=== PATIENT | female | born 1990 | race Caucasian/White ===

== ENCOUNTER → 2021-04-13 14:12 | Outpatient (CLI) | payer OTHER, SELFPAY ==
--- NOTE | ~2021-04-13 | US_ITS ---
EXAMINATION: US OB /maternal detail DATE: 04/13/2021 14:59 INDICATION: anatomic survey. TECHNIQUE: Real-time ultrasound of the pelvis was performed. COMPARISON: None. FINDINGS: There is a single living fetus in vertex presentation. The placenta is anterior, 6.8 cm from the cer vix. heart rate is 162 beats per minute (bpm). The amniotic fluid volume is subjectively normal . The following biometric data were obtained: Biparietal diameter (BPD): 4.7 cm; head circumference (HC): 17.5 cm; abdominal circumference (AC): 14 .7 cm; femur length (FL): 3.1 cm. These measurements are concordant. Estimated weight is 312 g +/- 47 g, which correlates with the 49th percentile when 09/02/21 is u sed as estimated date of delivery. As single measurements, these parameters are each equal to the following estimated gestational ages w ith ranges of +/- 2 standard deviations: BPD: 20 weeks 2 days (18 weeks 4 days - 22 weeks 0 days). HC: 20 weeks 0 days (18 weeks 4 days - 21 weeks 4 days). AC: 20 weeks 0 days (17 weeks 6 days - 22 weeks 0 days). FL: 19 weeks 3 days (17 weeks 4 days - 21 weeks 2 days). estimated gestational age based solely on measurements from this exam is 20 weeks 0 days +/- 1 weeks 3 days. The cerebral ventricles, cerebellum, cisterna magna, nuchal fold, and visualized portions of the spin e are normal. The heart is normal. The left ventricular and right ventricular outflow tracts are not well visualized. The diaphragm, stomach, kidneys, and bladder are normal. There are two umbilical art eries to yield a 3-vessel cord. The cord insertion is normal. IMPRESSION: 1. Single living fetus in vertex presentation. 2. Estimated weight is 312 g +/- 47 g, which correlates with the 49th percentile when 09/02/21 is used as estimated date of delivery. 3. Normal anatomic survey. Reviewed, dictated and finalized at location A. RAL PRODUCTION MANAGER IMPRESSION: 1. Single living fetus in vertex presentation. 2. Estimated weight is 312 g +/- 47 g, which correlates with the 49th pe rcentile when 09/02/21 is used as estimated date of delivery. 3. Normal anatomic survey.
== END ==
PROVIDERS: Visit Provider Obstetrics & Gynecology
DX: Z36.9 Encounter for antenatal screening, unspecified (principal); Z3A.20 20 weeks gestation of pregnancy
CPT/HCPCS: 76805

== ENCOUNTER 2025-01-03 17:52 | Emergency (ER) | payer OTHER, SELFPAY ==
--- NOTE | ~2025-01-03 | CT_ITS ---
Exam: CT abdomen and pelvis with contrast Clinical History: [Abdominal pain. Vomiting ] Comparison: [ None available] Technique: Multiple axial CT images of the abdomen and pelvis were obtained with IV contrast. Sagittal and coronal reformatted images were obtained. FINDINGS: Lung bases: [ ] Liver: [There is a too small to characterize low-attenuation in the liver.No mass.] [ No intrahepatic biliary duct dilatation.] Gallbladder: [ No wall thickening or stones.] Common bile duct: [ Normal caliber.] [ No stones.] Spleen: [ Within normal limits.] Pancreas: [ No mass. No pancreatic fluid collection.] Adrenals: [ No masses.] Kidneys: [ No masses. No hydronephrosis.][ ] Lymph nodes: [ No adenopathy in the abdomen or pelvis.] Stomach, small bowel and colon: [ No bowel wall thickening or obstruction.] Thickening of the winter of the descending and proximal transverse colon. Differential includes incomplete bowel wall distention or colitis. Peritoneum cavity: [ No mesenteric fat stranding or fluid.] Bladder: [ Unremarkable.] Uterus is unremarkable. There is an IUD in the uterus. Osseous structures: [ No acute fracture or destructive lesion.] [ Multilevel degenerative change in the visualized spine.] Abdominal aorta: [ No aneurysm.] Additional findings: [ None of significance.] IMPRESSION: 1. Thickening of the winter of the descending and proximal transverse colon. Differential includes incomplete bowel wall distention or colitis. Reviewed, dictated and finalized at location Q. IMPRESSION: 1. Thickening of the winter of the descending and proximal transverse colon. Dif ferential includes incomplete bowel wall distention or colitis.
--- OUTSIDE RECORDS SUMMARY | 2025-01-03 17:54 | XMS_ITS | Encounter Summary ---
Author Organization [facility] Address [address] [place] [address] Care Team Providers Care Polls Or Surveys Interviewer Name Role Phone Ludin Strange MD Primary Care Provider [phone] Encounter Details Date Type Department Care Team (Late st Contact Info) Description 07/30/2021 In[employer] Message [facility] [address] [place] [address] Kathrine Butler NP [address] [facility] [address] [place] [address] Right ear pressure/pain Social History Tobacco Use Types Packs/Day Years Used Date Smoking Tobacco: Former Cigarettes Q uit: 2018 Smokeless Tobacco: Never Alcohol Use Standard Drinks/Week Comments No 0 (1 standard drink = 0.6 oz pur e alcohol) AUDIT-C Answer Date Recorded Frequency of Alcohol Consumption Never 03/13/2019 Average Number of Drinks Not on file 019 Frequency of Binge Drinking Not on file 02/23 PHQ-2 Answer Date Recorded PHQ-2 Score - If the patient scores above 3, please move on to questions 3-9 0 07/30/2021 Comments Yes Sex and Gender Information Value Date Recorded Sex Assigned at Not on file Legal Sex Female 9:32 AM CDT Gender Identity Not on file Sexual Orientation Not on file Occupation Industry Job Start Date Job End Date [employer] Not on file Not on file Not o n file COVID-19 Exposure Response Date Recorded In the last 10 days, have yo u been in contact with someone who was confirmed or suspected to have Coronavirus/COVID-19? No / Unsure 08/02/2021 4:03 PM CDT documented as of this encounter Functional Status * RETIRED Are you deaf or do you have serious difficulty hearing Answer Date of Assessment Author Status No 04/14/2019 7:07 AM NETWORK CONSULTANT Activ e * RETIRED Are you blind or do you have serious difficulty seeing, even when wearing glasses? Answer Date of Assessment Author Status No 04/14/2019 7:07 AM NETWORK CONSULTANT Activ e * Do you have serious difficulty walking or climbing stairs? Answer Date of Assessment Author Status No 04/14/2019 7:07 AM Cynthia Ovalles RN Active * Do you have difficulty dressing or bathing? Answer Date of Assessment Author Status No 04/14/2019 7:07 AM Cynthia Ovalles RN Active * Because of a physical, mental, or emotional condition, do you have difficulty doing errands alone such as visiting a doctor's office or shopping? Answer Date of Assessment Author Status No 04/14/2019 7:07 AM Cynthia Ovalles RN Active * Calculated C-SSRS Risk Score (Lifetime/Recent) Answer Date of Assessment Author Status No Risk Indicated 08/02/2021 4:13 PM CDT Holli Engel RN Active * [place] Suicide Severity Rating Scale (Screener/Recent Self-Report) Question Answer Date of Assessment Author Status 1. Wish to be (Past 1 Month) No 08/02/2021 4:13 PM CDT Arvind Engel RN Acti ve 2. Non-Specific Active Suicidal Thoughts (Past 1 Month) No 08/02/2021 4:13 PM CDT Arvind Engel RN Acti ve 6. Suicidal Behavior (Lifetime) No 08/02/2021 4:13 PM CDT Arvind Engel RN Acti ve documented as of this encounter Mental Status * Because of a physical, mental, or emotional condition, do you have serious difficulty concentrating, remembering, or making decisions? Answer Entry Date Author Status No 04/14/2019 7:07 AM Cynthia Ovalles RN Active documented in this encounter Plan of Treatment Not on file documented as of this encounter Visit Diagnoses Not on filedocumented in this encounter Additional Health Concerns Infection Onset Date Last Indicated Resolved Time COVID-19 Rule Out 07/30/2021 07/30/2021 07/30/2021 12:05 PM CDT Assessment Noted Time PHQ-9 Depression Total Score: 0 05/26/19 3:15 PM NETWORK CONSULTANT documented as of this encounter Care Teams Polls Or Surveys Interviewer Relationship Specialty Start Date End Date Ludin Strange MD [address] [place] [address] PCP - General FAMILY PRACTICE 05/26/21 documented as of this encounter
--- OUTSIDE RECORDS SUMMARY | 2025-01-03 17:54 | XMS_ITS | Encounter Summary ---
Author Organization [facility] Address [address] [place] [address] Care Team Providers Care Correctional Counselor/Case Manager Name Role Phone Ludin Strange MD Primary Care Provider [phone] Encounter Details Date Type Department Care Team (Latest Contact Info) Description 05/17/2023 [employer] Message Enc [facility] Medical Group Family & Internal Medicine [address] [address] Jessica Engel, [address] [phone] escitalopram 10 MG tablet Social History Tobacco Use Types Packs/Day Years Used Date Smoking Tobacco: Former Cigarettes Q uit: 2013 Smokeless Tobacco: Never Alcohol Use Standard Drinks/Week Comments No 0 (1 standard drink = 0.6 oz pur e alcohol) AUDIT-C Answer Date Recorded Frequency of Alcohol Consumption Never 03/13/2019 Average Number of Drinks Not on file 019 Frequency of Binge Drinking Not on file 02/23 PHQ-2 Answer Date Recorded Patient Health Questionnaire-2 Score 0 06/07/2022 Comments No Sex and Gender Information Value Date Recorded Sex Assigned at Not on file Legal Sex Female 9:32 AM CDT Gender Identity Not on file Sexual Orientation Not on file Occupation Industry Job Start Date Job End Date [employer] Not on file Not on file Not o n file documented as of this encounter Functional Status * RETIRED Are you deaf or do you have serious difficulty hearing Answer Date of Assessment Author Status No 08/26/2021 2:10 AM CDT Activ e * RETIRED Are you blind or do you have serious difficulty seeing, even when wearing glasses? Answer Date of Assessment Author Status No 08/26/2021 2:10 AM CDT Activ e * Do you have serious difficulty walking or climbing stairs? Answer Date of Assessment Author Status No 08/26/2021 2:10 AM CDT Hailey Mata R N Active * Do you have difficulty dressing or bathing? Answer Date of Assessment Author Status No 08/26/2021 2:10 AM CDT Hailey Mata R N Active * Because of a physical, mental, or emotional condition, do you have difficulty doing errands alone such as visiting a doctor's office or shopping? Answer Date of Assessment Author Status No 08/26/2021 2:10 AM CDT Hailey Mata R N Active documented as of this encounter Mental Status * Because of a physical, mental, or emotional condition, do you have serious difficulty concentrating, remembering, or making decisions? Answer Entry Date Author Status No 08/26/2021 2:10 AM CDT Hailey Mata R N Active documented in this encounter Plan of Treatment Not on file documented as of this encounter Visit Diagnoses Not on filedocumented in this encounter Additional Health Concerns Assessment Noted Time PHQ-9 Depression Total Score: 0 06/07/19 23 12:20 PM FOUNDRY WORKER documented as of this encounter Care Teams Correctional Counselor/Case Manager Relationship Specialty Start Date End Date Ludin Strange MD [address] [address] PCP - General FAMILY PRACTICE 05/26/21 documented as of this encounter
--- OUTSIDE RECORDS SUMMARY | 2025-01-03 17:54 | XMS_ITS | Encounter Summary ---
Author Organization [facility] Address [address] [place] [address] Care Team Providers Care Disability Counselor Name Role Phone Ludin Strange MD Primary Care Provider [phone] Encounter Details Date Type Department Care Team (Late st Contact Info) Description 06/29/2022 [employer] Message Enc [facility] Medical Group Family & Internal Medicine [address] [address] Jessica Engel, [address] [phone] 10 day sore throat Social History Tobacco Use Types Packs/Day Years [...] Industry Job Start Date Job End Date [employer] Not on file Not on file Not o n file COVID-19 Exposure Response Date Recorded In the last 10 days, have yo u been in contact with someone who was confirmed or suspected to have Coronavirus/COVID-19? No / Unsure 06/07/2022 12:08 PM STEWARD/STEWARDESS SMOKE ROOM documented as of this encounter Functional Status [...] Total Score: 0 06/07/19 23 12:20 PM STEWARD/STEWARDESS SMOKE ROOM documented as of this encounter Care Teams Disability Counselor Relationship Specialty Start Date End Date Ludin Strange MD [address] [address] PCP - General FAMILY PRACTICE 05/26/21 documented as of this encounter
--- OUTSIDE RECORDS SUMMARY | 2025-01-03 17:54 | XMS_ITS | Clinical Summary ---
Author Organization [facility] Address [address] [place] [address] Care Team Providers Care Correspondence Section Supervisor Name Role Phone Ludin Strange MD Primary Care Provider [phone] Allergies No known active allergies Medications vitamin 27-1 MG Tab tablet Take 1 tablet by mouth daily. Active escitalopram (LEXAPRO) 10 MG tabletIndication s: depression associated with second ,Genera lized anxiety disorder Take 1 tablet (10 mg total) by mouth daily. 90 tablet 1 08/19/2023 Active Phentermine HCl 15 MG Cap 11/25/2023 Active Active Problems Problem Noted Date Diagnosed Date History of gestational hypertension 06/15/2022 Anxiety and depression 06/15/2022 Encounter for elective induction of labor ([facility]) 08/26/2021 (spontaneous vaginal delivery) ([facility]) ([facility]) 04/13/2019 Immunizations Immunization Administration Dates Next Due Fluzone 6 Months+ Quad (0.5 mL Prefilled Syringe) 02/16/2022 Influenza Adult (Generic) 04/15/2021,03/24/2020, 02/03/2019 MODERNA COVID-19 (12+) MRNA, LNP-S, PF, 100 MCG/ 0.5 ML DOSE 09/02/2020,08/05/2020 MODERNA COVID-19 (LIGHTING FIXTURE INSTALLER DK ILYA), MRNA, LNP-S, PF, 50 MCG/ 0.25 ML DOSE 05/11/2021 Tdap (Generic) 07/20/2021,01/27/2019 Family History Medical History Relation Comments None Brother 1 None Brother 2 None Father None Mother None Sister Relation Status Comments Brother 1 Alive Brother 2 Alive Father Alive Mother Alive Sister Alive Social History Tobacco Use Types Packs/Day Years Used Date Smoking Tobacco: Former Cigarettes Q uit: 2013 Smokeless Tobacco: Never Tobacco Cessation:Counseling Given: No Alcohol Use Standard Drinks/Week Comments No 0 (1 standard drink = 0.6 oz pur e alcohol) AUDIT-C Answer Date Recorded Frequency of Alcohol Consumption Never 03/13/2019 Average Number of Drinks Not on file 019 Frequency of Binge Drinking Not on file 02/23 PHQ-2 Answer Date Recorded Patient Health Questionnaire-2 Score 0 08/02/2023 Comments No Sex and Gender Information Value Date Recorded Sex Assigned at Not on file Legal Sex Female 9:32 AM CDT Gender Identity Not on file Sexual Orientation Not on file Occupation Industry Job Start Date Job End Date [employer] Not on file Not on file Not o n file Last Filed Vital Signs Vital Sign Reading Time Taken Comments Blood Pressure 138/89 01/05/2024 8:52 AM CDT Pulse 103 01/05/2024 8:52 AM CDT Temperature 36.3 C (97.3 F) 01/05/2024 8:52 AM CDT Respiratory Rate 18 01/05/2024 8:52 AM CDT Oxygen Saturation 98% 01/05/2024 8:52 AM CDT Inhaled Oxygen Concentration - - Weight 99.2 kg (218 lb 9.6 oz) 01/05/2024 8:52 A M CDT Height 167.6 cm (5' 6) 01/05/2024 8:52 AM CDT Body Mass Index 35.28 01/05/2024 8:52 AM CDT Plan of Treatment Health Maintenance Due Date Last Done Comments Cervical Cancer Screening Pa p Smear (Age 30 to 64) Every 3 Years 1989 Hepatitis C 07/29/2007 Hepatitis B Vaccines (1 of 3 - 19+ 3-dose series) 2008 HPV Vaccines (1 - 3-dose SCD M series) 2016 Cervical Cancer Screening Pa p with HPV Testing (Age 30 to 64) Every 5 Years 07/29/2019 Cervical Cancer Screening wi th HPV 07/29/2019 Annual Physical 01/01/2024 12/31/2022, 05/26/2021 PHQ-2 (Physician [place]) 04/25/2024 08/02/2023 COVID-19 Vaccine (4 - 2024- 6 season) 2024 05/11/2021, 09/02/2020, 08/05/2020 DTaP, Tdap and Td Vaccines ( 3 - Td or Tdap) 07/21/2031 07/20/2021, 01/27/2019 Meningococcal B Vaccine Aged Out No l onger eligible based on patient's age to complete this topic Meningococcal Vaccine Aged Out No kade marcela eligible based on patient's age to complete this topic Pneumococcal Vaccine: Pediatrics (0 to 5 Years) and At-Risk Patients (6 to 49 Years) Aged Out No longer eligible b ased on patient's age to complete this topic RSV Immunizations Under 20 Months Aged Out No longer eligible b ased on patient's age to complete this topic Insurance [facility] Advance Directives * Full Code (Latest Code Status on File) Date Activated Date Inactivated Comments 08/26/2021 1:43 AM 08/28/2021 1:35 PM * Full Code Date Activated Date Inactivated Comments 04/13/2019 5:33 AM 04/16/2019 1:07 PM Care Teams Correspondence Section Supervisor Relationship Specialty Start Date End Date Ludin Strange MD [address] [facility] [address] [place] [address] PCP - General FAMILY PRACTICE 05/26/21
[2025-01-03 18:23] VITALS: BP 150/106; PULSE 102; RESP 16; TEMP 36.9; O2SAT 98
[2025-01-03 22:48] VITALS: BP 139/104; PULSE 86; RESP 20; TEMP 36.8; O2SAT 99
[2025-01-03 22:55] LABS: Hematocrit 40.6 % (37.0-47.0); Hemoglobin 13.0 g/dL (12.0-15.0); Immature Granulocyte Percent A 0.1 % (0-0.5); Lymphocytes Absolute Auto 2.76 K/mm3 (0.9-3.2); Mean Corpuscular HGB Conc 32.0 g/dl (32-36); Mean Corpuscular Hemoglobin 23.9 pg (26-34); Mean Corpuscular Volume 74.6 fl (80-100); Nucleated Red Blood Cells Absolute Auto 0.000 K/mm3 (0.0-0.012); Nucleated Red Blood Cells Perc 0.0 % (0.0-0.2); Platelet Count Result 404 k/mm3 (150-375); Red Blood Count 5.44 M/mm3 (4.2-5.4); White Blood Count 9.8 K/mm3 (4.5-10.0)
[2025-01-03 23:16] LABS: Alanine Aminotransferase 18 U/L (6-35); Albumin Level 5.1 g/dL (3.5-5.1); Alkaline Phosphatase 64 U/L (38-126); Anion Gap 18 mmol/L (4-12); Aspartate Amino Transferase 25 U/L (14-36); Bilirubin,Total 0.7 mg/dL (0.2-1.3); Blood Urea Nitrogen 13 mg/dL (7-17); Calcium 10.3 mg/dL (8.4-10.2); Carbon Dioxide 20 mmol/L (22-30); Chloride 100 mmol/L (98-107); Estimated CRCL calculation 49 ml/min; Estimated Glomerular Filt Rate 44; Glucose 87 mg/dL (65-110); Lipase 77 U/L (23-300); Potassium 3.7 mmol/L (3.4-5.0); Sodium 138 mmol/L (137-145); Total Protein 8.5 g/dL (6.3-8.2)
--- NOTE | 2025-01-03 23:52 | PC.NURSE ---
pt ambulatory to bathroom with steady gait.
[2025-01-03] MEDS: SODIUM CHLORIDE 0.9% IV 1,000 ML 999 ML IV CONT (23:57)
[2025-01-03 23:59] LABS: BEDSIDEPREGUCG Negative (Negative)
--- NOTE | 2025-01-04 00:03 | ED_ITS ---
HPI - Abdominal Pain General Chief Complaint: Abdominal Pain Stated Complaint: abd pain, n/v Time Seen by Provider: 01/03/25 22:39 Source: patient Mode of arrival: ambulatory Limitations: no limitations History of Present Illness HPI narrative: This is a 34-year-old female that presents to the emergency department for abdominal pain, nausea and vomiting. Ongoing over the last week. Reports she has not been able to keep much down the last couple of days. Does report some diarrhea. Denies fevers. Related Data Allergies Allergy/AdvReac Type Severity Reaction Status Date / Time No Known Allergies Allergy Mild Verified 01/09/10 20:44 Review of Systems 2 Review of Systems: All systems reviewed & are unremarkable except as noted in HPI and below PMFSH Past Medical History Medical History (Updated 01/04/25 @ 02:37 by Katie Ramirez PA-C) No active medical problems Exam 2 Narrative: GENERAL: Well-appearing, well-nourished, and in no acute distress. HEAD: Normocephalic, atraumatic. EYES: EOMI. CHEST: Clear to auscultation. No respiratory distress. No wheezes rales or rhonchi HEART: Regular rate and rhythm. No murmur heard. Normal peripheral pulses. ABDOMEN: Soft, nontender, nondistended, normal active bowel sounds. EXTREMITIES: Normal range of motion. No edema. SKIN: Warm, dry, no rash. NEURO: No focal deficits. Alert and oriented x3. PSYCH: Normal mood and affect Course Course Emergency Course: patient updated on her workup and agrees with plan of care. Tolerating oral intake Vital Signs Vital signs: Vital Signs Temperature 98.5 F 01/03/25 18:23 Pulse Rate 102 H 01/03/25 18:23 Respiratory Rate 16 01/03/25 18:23 Blood Pressure 150/106 H 01/03/25 18:23 Pulse Oximetry 98 01/03/25 18:23 Oxygen Delivery Room Air 01/03/25 18:23 Temperature 98.3 F 01/03/25 22:48 Pulse Rate 86 01/03/25 22:48 Respiratory Rate 20 01/03/25 22:48 Blood Pressure 139/104 H 01/03/25 22:48 Pulse Oximetry 99 01/03/25 22:48 Oxygen Delivery Room Air 01/03/25 22:48 MDM - Abdominal Pain MDM Narrative Medical decision making narrative: Patient presents to the emergency department for abdominal pain, vomiting, diarrhea. She is afebrile and nontoxic appearing. Tachycardic upon arrival, this normalized with IV fluids. Cbc without leukocytosis. Metabolic panel with evidence of dehydration, this was repeated with closure of gap after IV fluids. Urine with 6-10 white blood cells, but moderate squamous epithelial cells. Patient does not have any urinary symptoms. CT abdomen pelvis showing findings of colitis. Patient will be started on oral antibiotics. She was given warnings to returnto the ER Differential Diagnosis Differential diagnosis: Likely diverticulitis, gastroenteritis, small bowel obstruction and other (Colitis) Lab Data Attestation: I reviewed the patient's lab results. 01/03/25 22:49 01/04/25 01:39 Labs: Lab Results 01/03/25 01/03/25 01/03/25 Range/Units 22:49 23:56 23:58 WBC 9.8 (4.5-10.0) K/mm3 RBC 5.44 H (4.2-5.4) M/mm3 Hgb 13.0 (12.0-15.0) g/dL Hct 40.6 (37.0-47.0) % MCV 74.6 L (80-100) fl MCH 23.9 L (26-34) pg MCHC 32.0 (32-36) g/dl RDW 14.1 (11.5-14.5) % Plt Count 404 H (150-375) k/mm3 MPV 9.5 (7.4-10.4) fl Immature Gran % (Auto) 0.1 (0-0.5) % Neut % (Auto) 59.8 (45.5-73.1) % Lymph % (Auto) 28.1 (18.3-44.2) % [place] % (Auto) 11.0 H (2.6-8.5) % Eos % (Auto) 0.3 (0-4.4) % Baso % (Auto) 0.7 (0.2-1.2) % Lymph # (Auto) 2.76 (0.9-3.2) K/mm3 [place] # (Auto) 1.1 H (0.1-0.6) K/mm3 Eos # (Auto) 0.0 (0-0.3) K/mm3 Baso # (Auto) 0.1 (0.0-0.1) K/mm3 Abs Immat Gran (auto) 0.01 (0.00-0.031) K/mm3 Absolute Neuts (auto) 5.9 (1.3-6.7) K/mm3 Absolute Nucleated RBC 0.000 (0.0-0.012) K/mm3 Nucleated RBC % 0.0 (0.0-0.2) % Sodium 138 (137-145) mmol/L Potassium 3.7 (3.4-5.0) mmol/L Chloride 100 (98-107) mmol/L Carbon Dioxide 20 L (22-30) mmol/L Anion Gap 18 H (4-12) mmol/L BUN 13 (7-17) mg/dL Creatinine 1.36 H (0.7-1.0) mg/dL Estim Creat Clear Calc 49 ml/min Estimated GFR 44 L (59 - ) Glucose 87 (65-110) mg/dL Calcium 10.3 H (8.4-10.2) mg/dL Total Bilirubin 0.7 (0.2-1.3) mg/dL AST 25 (14-36) U/L ALT 18 (6-35) U/L Alkaline Phosphatase 64 (38-126) U/L Total Protein 8.5 H (6.3-8.2) g/dL Albumin 5.1 (3.5-5.1) g/dL Lipase 77 (23-300) U/L Urine Color Yellow (Yellow) Urine Appearance Cloudy H (Clear) Urine pH 5.0 (5.0-9.0) Ur Specific [place] 1.022 (1.001-1.035) Urine Protein 1+ H (Negative) mg/dL Urine Glucose (UA) Negative (Negative) mg/dL Urine Ketones 3+ H (Negative) mg/dL Ur Blood (Man) 1+ H (Negative) Urine Nitrate Negative (Negative) Urine Bilirubin Negative (Negative) Urine Urobilinogen 1.0 (<2.0) mg/dL Add Ur Microanalysis Reviewed Leukocyte Esterase Rfl Negative (Negative) KYLEE/UL Urine RBC 6-10 H (0-2) /hpf Urine WBC 6-10 H (0-3) /hpf Ur Squamous Epith Cells Moderate (Few) /hpf Urine Bacteria Rare /hpf Urine Casts >20 Hyaline Casts Present (None) /lpf POC Urine HCG, Qual Negative (Negative) 01/04/25 Range/Units 01:39 WBC (4.5-10.0) K/mm3 RBC (4.2-5.4) M/mm3 Hgb (12.0-15.0) g/dL Hct (37.0-47.0) % MCV (80-100) fl MCH (26-34) pg MCHC (32-36) g/dl RDW (11.5-14.5) % Plt Count (150-375) k/mm3 MPV (7.4-10.4) fl Immature Gran % (Auto) (0-0.5) % Neut % (Auto) (45.5-73.1) % Lymph % (Auto) (18.3-44.2) % [place] % (Auto) (2.6-8.5) % Eos % (Auto) (0-4.4) % Baso % (Auto) (0.2-1.2) % Lymph # (Auto) (0.9-3.2) K/mm3 [place] # (Auto) (0.1-0.6) K/mm3 Eos # (Auto) (0-0.3) K/mm3 Baso # (Auto) (0.0-0.1) K/mm3 Abs Immat Gran (auto) (0.00-0.031) K/mm3 Absolute Neuts (auto) (1.3-6.7) K/mm3 Absolute Nucleated RBC (0.0-0.012) K/mm3 Nucleated RBC % (0.0-0.2) % Sodium 137 (137-145) mmol/L Potassium 3.6 (3.4-5.0) mmol/L Chloride 103 (98-107) mmol/L Carbon Dioxide 22 (22-30) mmol/L Anion Gap 12 (4-12) mmol/L BUN 12 (7-17) mg/dL Creatinine 1.09 H (0.7-1.0) mg/dL Estim Creat Clear Calc 60 ml/min Estimated GFR 57 L (59 - ) Glucose 74 (65-110) mg/dL Calcium 8.9 (8.4-10.2) mg/dL Total Bilirubin (0.2-1.3) mg/dL AST (14-36) U/L ALT (6-35) U/L Alkaline Phosphatase (38-126) U/L Total Protein (6.3-8.2) g/dL Albumin (3.5-5.1) g/dL Lipase (23-300) U/L Urine Color (Yellow) Urine Appearance (Clear) Urine pH (5.0-9.0) Ur Specific [place] (1.001-1.035) Urine Protein (Negative) mg/dL Urine Glucose (UA) (Negative) mg/dL Urine Ketones (Negative) mg/dL Ur Blood (Man) (Negative) Urine Nitrate (Negative) Urine Bilirubin (Negative) Urine Urobilinogen (<2.0) mg/dL Add Ur Microanalysis Leukocyte Esterase Rfl (Negative) KYLEE/UL Urine RBC (0-2) /hpf Urine WBC (0-3) /hpf Ur Squamous Epith Cells (Few) /hpf Urine Bacteria /hpf Urine Casts Hyaline Casts (None) /lpf POC Urine HCG, Qual (Negative) Imaging Data Radiologist's impression: CT abdomen and pelvis: While thickening in the ascending and proximal transverse colon, concerning for mild colitis Critical Care Time Critical Care Time Critical Care Time: No Discharge Plan Discharge Clinical Impression: Colitis Patient Disposition: Home Condition: Stable Instructions: Antibiotic Form, Colitis (ED) Additional Instructions: Return to the ER if you experience fever, abdominal pain with nausea and vomiting, you are unable to keep down liquids or solids, blood in the stool or any other symptoms that are concerning to you Remain well hydrated. Take oral antibiotic as prescribed Follow up with gastroenterology Patient Language: Kyrgyz Prescriptions: New metronidazole 500 mg tablet 500 mg PO Q12H 5 Days Qty: 10 0RF ciprofloxacin HCl 500 mg tablet 500 mg PO Q12H 5 Days Qty: 10 0RF Follow-up/Referrals: Alie,Ludin Ching MD [Primary Care Provider, Unknown] Loco Chavez MD [Physician, Gastroenterology]
[2025-01-04 00:17] LABS: Add Urine Microscopic? YES; Appearance Urine Cloudy (Clear); Glucose Urine UA Negative (Negative); Leukocyte Esterase Ur Negative LEU/UL (Negative); Need Manual Microscopic Reviewed; Nitrate Urine Negative (Negative); Non Pathogenic Casts >20; Specific Grav Ur 1.022 (1.001-1.035)
[2025-01-04] MEDS: FAMOTIDINE 20 MG/2 ML VIAL IV PUSH (00:41)
[2025-01-04] MEDS: LACTATED RINGERS 1,000 ML 999 ML IV CONT (00:43)
[2025-01-04] MEDS: METOCLOPRAMIDE HCL INJ 10 MG/2 ML VIAL IV PUSH (00:43)
[2025-01-04 02:07] LABS: Anion Gap 12 mmol/L (4-12); Blood Urea Nitrogen 12 mg/dL (7-17); Calcium 8.9 mg/dL (8.4-10.2); Carbon Dioxide 22 mmol/L (22-30); Chloride 103 mmol/L (98-107); Estimated CRCL calculation 60 ml/min; Estimated Glomerular Filt Rate 57; Glucose 74 mg/dL (65-110); Potassium 3.6 mmol/L (3.4-5.0); Sodium 137 mmol/L (137-145)
[2025-01-04 03:17] VITALS: BP 133/89; PULSE 94; RESP 18; O2SAT 100
== END 2025-01-04 03:14 | disposition home or self-care (01) ==
PROVIDERS: Emergency Provider Physician Assistant; PCP Family Medicine Sports Medicine
DX: K52.9 Noninfective gastroenteritis and colitis, unspecified (principal)
CPT/HCPCS: 36415; 74177; 80048; 80053; 81001; 81025; 83690; 85025; 96360; 96361; 96374; 96375; 99284; J1200; J2765; J7030; J7120; Q9967